=== PATIENT | male | born 1995 | race Caucasian/White ===

== ENCOUNTER 2025-06-09 20:37 | Emergency (ER) | payer BC, SELFPAY ==
--- OUTSIDE RECORDS SUMMARY | 2024-10-17 05:40 | XMS_ITS ---
Author Organization [facility] Address [address] [place] [address] Care Team Providers Care Application Designer Name Role Phone Melanie Trotter Primary Care Provider Lupe Hernandez Unavailable [phone] MELANIE TROTTER Unavailable Unavailable REASON FOR VISIT med refills Encounters Encounter Location Date Provider Diagnosis [facility] Office [address] [address] 10/17/2024 Melanie Trotter Plan Of Treatment No Information Progress Notes * Mundo GALVEZ HDOB:1994 (30 yo M)Acc No.[id number]:10/17/2024 Progress Notes Patient: Mundo Washington Provider: Joyce Trotter APRN :1995 A ge:29 Y S ex:Male Date:10/17/2024 Address:[address] [id number] Subjective: * Chief Complaints: * M ed refills Billing Information: * Procedure Codes: Care Plan Details* * Electronic signature of Tania Trotter APN on 06/09/2025 at 08:44 PM CDL COMPANY DRIVER Sign off status: Pending * Provider: Joyce Trotter APRN Date: 0 10/17/2024 Generated for Printi ng/Faxing/eTransmitting on: 1 08/10/2024 08:44 PM CDL COMPANY DRIVER
--- OUTSIDE RECORDS SUMMARY | 2025-06-08 07:20 | XMS_ITS ---
Author Organization [facility] Address [address] [place] [address] Care Team Providers Care Medicine Man Name Role Phone Melanie Trotter Primary Care Provider Lupe Hernandez Unavailable [phone] MELANIE TROTTER Unavailable Unavailable Allergies No Known Allergies Results Component Value Reference Range Notes Influenza A/B - 71188 Reviewed date:06/08/2025 02:52:05 PM Interpretation: Performing Lab: Notes/Report: A neg B neg COVID-19 RAPID - [id number] Reviewed date:06/08/2025 02:52:22 PM Interpretation: Performing Lab: Notes/Report: COVID19 neg REASON FOR VISIT Patient to clinic with complaint of recent cough, congestion and drainage. Medications Medication SIG (Take, Route, Frequency, Duration) Notes Start Date End Date Status Ibuprofen 800 MG Tablet 1 tablet with fo od or milk as needed Orally every 8 hrs 10/20/2024 Active traMADol HCl 50 MG Tablet 1 tablet as ne eded Orally Twice a day 03/09/2025 Active Lisinopril 10 mg Tablet TAKE ONE TABLET BY MOUTH ONCE DAILY; Duration: 30 Active Pantoprazole Sodium 40 mg Tablet Delayed Release TAKE 1 TABLET BY MOUTH TWICE DAILY; Duration: 30 Active Amoxicillin 500 MG Capsule 2 caps Orally Twice a day; Duration: 10 days 06/08/2025 06/18/2025 Active Immunizations Vaccine Route Administration Date Status Comme nts Flucelvax Trivalent, Syringe 0.5 mL, PF Unknown 025 Refused Social History Tobacco Use: Social History Observation Description Date Details (start date - stop date) Never Smoker NA - NA Social History Tobacco Use: Social Info Question Answer Notes Tobacco Control (Standard) Tobacco use: Nonsmoker Section Notes: 03/22/21 08-06-22 PHQ9 10/20/24 PHQ9 Vital Signs Temperature 97.5 degrees Fahrenheit 06/08/20 25 Blood pressure systolic 134 mm Hg 06/08/20 25 Blood pressure diastolic 70 mm Hg 025 Heart Rate 100 /min 06/08/2025 Respiratory Rate 18 /min 06/08/2025 Height 71 in 06/08/2025 Weight 303 lbs 06/08/2025 BMI 42.26 kg/m2 06/08/2025 Oximetry 98 % 06/08/2025 Height-cm 180.34 cm 06/08/2025 Weight-kg 137.44 kg 06/08/2025 Encounters Encounter Location Date Provider Diagnosis [facility] Office [address] [address] 06/08/2025 Lupe Hernandez Cough R05.9 ; Sinusi tis J32.9 ; Bronchitis J40 ; Encounter for immunization Z23 and Immunization not carried out because of patient refusal Z28.21 Assessments Encounter Date Diagnosis (ICD Code) Assessment Notes Treatment Notes Treatment Clinical Notes Section Notes 06/08/2025 Cough (ICD-10 - R05.9) covid swab neg flu swab neg 06/08/2025 Sinusitis (ICD-10 - J32.9) depomedrol/deca dron im rocephin 1 gram im amoxicillin 06/08/2025 Bronchitis (ICD-10 - J40) 06/08/2025 Encounter for immunization (ICD-10 - Z23) 06/08/2025 Immunization not carried out because of patient refusal (ICD-10 - Z28.21) 06/08/2025 Other Questions asked and answered; discharged to home. Plan Of Treatment Medication Medication Name Sig Start Date Stop Date Notes Amoxicillin 500 MG Capsule 2 caps Orally Twice a day; Duration: 10 days 06/08/2025 06/18/2025 Treatment Notes Assessment Notes Cough covid swab neg flu swab neg Sinusitis depomedrol/decadron im rocephin 1 gram im amoxicillin Other Questions asked and answered; discharged to home. Next Appt Details Follow Up: prn, Reason: Medications Administered Medication Instructions Date of Administration Dosage Notes dexAMETHasone 06/08/2025 4 mg [facility] [address]24[address]-7 423-00 pt tolerated well/instructed to wait 20 min DEPO-Medrol 06/08/2025 40 mg [facility] 66591-243 3-01 pt tolerated well/instructed to wait 20 min Rocephin 06/08/2025 1 g [facility] [address] -11 pt tolerated well/instructed to wait 20 min History and Physical Notes * HPI (History of Present Illness) Category Sub-Category Detail Notes Category Not es Provider Note patient is an alert 30 year old male known to practice and here for complaint of cough congestion denies fever has plans to travel for holidays flu swab neg covid swab neg discussed with patient results sinusitis bronchitis cough will administer depomedrol/decadron im as well as rocephin 1 gram im will e script amoxicillin Examination Category Sub-Category Detail Notes Category Not es General Examination GENERAL APPEARANCE: alert, w ell hydrated, in no distress, converses well HEAD: normocephalic, atrau matic EYES: PERRL; normal conjun ctiva EARS: bilateral tympanics slight reddened with fluid bulges THROAT: ERYTHEMATOUS THROAT, post nasal drainage NECK/THYROID: neck supple, full ra nge of motion, no JVD, without thyromegaly or masses HEART: Regular rate and rhy thm, S1 S2 normal LUNGS: Few scattered rales throughout posterior NEUROLOGIC: alert and oriented, cerebellar function normal, cognitive exam grossly normal, gait normal SKIN: warm and dry EXTREMITIES: no clubbing, cyanosi s, or edema. PSYCH: alert, oriented, cog nitive function intact, cooperative with exam, good eye contact, mood/affect full range, speech clear Progress Notes * Mundo GALVEZ HDOB:1994 (30 yo M)Acc No.[id number]:06/08/2025 Patient: Mundo Washington H Provider: Preet Hernandez APRN :1995 A ge:30 Y S ex:Male Date:06/08/2025 Address:[address] [place], [place] [id number] Pcp:Melanie Trotter Check In:01:02 PM CSTCheck O ut:01:23 PM LABORER PLUMBING Subjective: * Chief Complaints: * P atient to clinic with complaint of recent cough, congestion and drainage. * HPI: P lucianoder Note: patient is an alert 30 year old male known to practice and here for complaint of cough congestion denies fever has plans to travel for holidays flu swab neg covid swab neg discussed with patient results sinusitis bronchitis cough will administer depomedrol/decadron im as well as rocephin 1 gram im will e script amoxicillin. * ROS: G eneral - Multi System: Respiratory R eportscough . * Medical History: No Medical History Documented Medical History Verified * Surgical History: testicle surgery at age 13 Surgical History verified. * Hospitalization/Major Diagno stic Procedure: Denies Past Hospitalization. * Family History: F ather: unknown. M other: . F amily History Verified.. * Social History: T obacco Use: T obacco Control (Standard) T obacco use: N onsmoker S ocial History Verified. 1 08-06-22 PHQ9 10/20/24 PHQ9. * Medications: T akingtraMADol HCl 50 MG Tablet 1 tablet as needed Orally Twice a day Ibuprofen 800 MG Tablet 1 tablet with food or milk as needed Orally every 8 hrs Lisinopril 10 mg Tablet TAKE ONE TABLET BY MOUTH ONCE DAILY Pantoprazole Sodium 40 mg Tablet Delayed Release TAKE 1 TABLET BY MOUTH TWICE DAILY Taking traMADol HCl 50 MG Tablet 1 tablet as needed Orally Twice a day Taking Ibuprofen 800 MG Tablet 1 tablet with food or milk as needed Orally every 8 hrs Taking Lisinopril 10 mg Tablet TAKE ONE TABLET BY MOUTH ONCE DAILY Taking Pantoprazole Sodium 40 mg Tablet Delayed Release TAKE 1 TABLET BY MOUTH TWICE DAILY * Allergies: N .K.D.A.yesAllergies Verified. Objective: * Vitals: H t: 71 in, Wt:303lbs, Wt-k.44 kg, BMI:42.26Index, Temp:97.5F, BP:134/70mm Hg, HR:100/min, RR:18/min, Oxygen sat %:98%, O2 Source: RA, Pain scale: 1 1-10, Ht- cm: 180.34 cm. * Examination: G eneral Examination: GENERAL APPEARANCE: a lert, well hydrated, in no distress, converses well. HEAD: n ormocephalic, atraumatic. EYES: P ERRL; normal conjunctiva. EARS: b ilateral tympanics slight reddened with fluid bulges. THROAT: E RYTHEMATOUS THROAT, post nasal drainage. NECK/THYROID: n savanna supple, full range of motion, no JVD, without thyromegaly or masses. SKIN: w arm and dry. HEART: R egular rate and rhythm, S1 S2 normal. LUNGS: F ew scattered rales throughout posterior. EXTREMITIES: n o clubbing, cyanosis, or edema.. NEUROLOGIC: a lert and oriented, cerebellar function normal, cognitive exam grossly normal, gait normal. PSYCH: a lert, oriented, cognitive function intact, cooperative with exam, good eye contact, mood/affect full range, speech clear. Assessment: * Assessment: 1. C ough - R05.9 (Primary) 2 . S inusitis - J32.9 3 . B ronchitis - J40 4 . E ncounter for immunization - Z23 5 . I mmunization not carried out because of patient refusal - Z28.21 Plan: * Treatment: Value Reference Range A neg * B neg ?LAB: COVID-19 RAPID - [id number] (Collection Date & Time - 06/08/2025)* Value Reference Range C OVID19 neg Notes: covid swab neg flu swab neg??2.?Sinusitis? Start Amoxicillin Capsule, 500 MG, 2 caps, Orally, Twice a day, 10 days, 40 Capsule, Start Date: 06/08/2025, Stop Date: 06/18/2025, Refills 0.?? Notes: depomedrol/decadron im rocephin 1 gram im amoxicillin??3.?Others? Notes: Questions asked and answered; discharged to home.?? * Immunizations: Flucelvax Trivalent, Syringe 0.5 mL, PF (Not administered - Refused: Patient decision) (Encounter for immunization, Immunization not carried out because of patient refusal) * Therapeutic Injections: Dexamethasone Sodium Phosphate : 4 mg (Route: Combination inj. into one route) given by Kasey Duenas on left hip (Sinusitis) Depo-Medrol/Methylprednisolone per 40mg : 40 mg (Route: Combination inj. into one route) given by Kasey Duenas on left hip (Sinusitis) Rocephin/Ceftriaxone 1 Gram (per 250 mg) : 1 g (Route: Intramuscular) given by Kasey Duenas on left hip (Sinusitis) * Procedure Codes: 3 078F DIAST BP < 80 MM [id number] SYST BP GE 130 - 139MM [id number] INFLUENZA ASSAY W/OPTIC IH, Modifiers: QW 29236 CORONAVIRUS AG IA, Modifiers: QW J1100 Dexamethasone Sodium [id number] THER/PROPH/DIAG INJ, SC/CKD2445 Injection, methylprednisolone acetate, 1 mg, Units: 40.00 J0696 Rocephin/Ceftriaxone 1 Gram (per 250 mg) * Preventive Medicine: Screenings: D EPRESSION SCREENING: Date of most recent screenin 10/20/2024 The patient denies: a nxiety, depressed mood, difficulty sleeping, lack of energy, lack of interest in things that were enjoyable, poor appetite, sadness, thoughts of harming him/herself, thought of harming someone else, trouble concentrating, weight gain, weight loss, any depressive symptoms at this time Suicidal ideation: h as never been expressed/considered Homicidal ideation: h as never been expressed/considered * Follow Up: p rn Billing Information: * Visit Code: 86139 Office Visit, Est Pt., Level 3. * Procedure Codes: 3078F DIAST BP < 80 MM HG. 3075F SYST BP GE 130 - 139MM HG. 21912 INFLUENZA ASSAY W/OPTIC IH. Modifiers: QW 52515 CORONAVIRUS AG IA. Modifiers: QW J1100 Dexamethasone Sodium Phosphate. 84113 THER/PROPH/DIAG INJ, SC/IM. J1010 Injection, methylprednisolone acetate, 1 mg. Units: 40.00. J0696 Rocephin/Ceftriaxone 1 Gram (per 250 mg). * RER PLUMBING Sign off status: Completed true * Provider: Preet Hernandez VOLUNTEER SERVICES ASSISTANT Date: 08/09/2024 Generated for Ed Son/Jensmitting on: 08/10/2024 08:44 PM [employer]
[2025-06-09 20:44] VITALS: BP 136/82; PULSE 101; RESP 16; TEMP 36.6; O2SAT 100; BMI 43.5
--- OUTSIDE RECORDS SUMMARY | 2025-06-09 20:44 | XMS_ITS | Patient Health Record ---
Author Organization [facility] Address [address] [place] [address] Care Team Providers Care Steelworker Name Role Phone Jeffreykranthi Melanie Primary Care Provider Lupe Hernandez Unavailable [phone] MELANIE TROTTER Unavailable Unavailable Allergies No Known Allergies Results Component Value Reference Range Flag Notes Lipid Panel Reflex DLDL 8005 6, 61270 Reviewed date:03/14/2025 10:36:52 AM Interpretation: Performing Lab: Notes/Report: Diagnosis Description: Essential (primary) hypertension Trig 100 NA Children: Female Children: Male 5-9 yr 32-105 10-14 yr 37-131 Very high >=500 Adults: >20yrs 15-19 yr 39-132 Desirable <150 Borderline High 150-199 0-4 yr 34-112 0-4 yr 22-99 5-9 yr 30-101 High 200-499 Classification Guidelines:Triglycerides 10-14 yr 32-125 15-19 yr 37-148 Chol 171 <=200 MG/DL HDL 41 30-72 MG/DL Male: Reference Ranges:HDL 5-9y 36-73 10-14y 37-74 10-14y 37-70 15-19y 30-63 15-19y 35-74 5-9y 38-75 >=20y 40-59 >=20y 40-59 Female: CH/HDL 4.2 0.0-4.9 RATIO LDL 110 0-130 MG/DL LDL result is inaccurate , if Trig is >400 mg/dl. See DLDL result. Influenza A/B - 82454 Reviewed date:06/08/2025 02:52:05 PM Interpretation: Performing Lab: Notes/Report: A neg B neg COVID-19 RAPID - 85998 Reviewed date:06/08/2025 02:52:22 PM Interpretation: Performing Lab: Notes/Report: COVID19 neg Comprehensive Metabolic Pane l (CMP) 71053 Reviewed date:03/14/2025 10:37:04 AM Interpretation: Performing Lab: Notes/Report: Diagnosis Description: Essential (primary) hypertension Glucose Serum 89 71-110 MG/DL Testing p erformed at [facility], [address] [place] [address] [place] [address]. CLIA ID#: [id number] BUN 18 7-21 MG/DL Creat .78 .57-1.17 MG/DL V-esxrrb-y-benzoquinone imine (NAPQI) is a metabolite of acetaminophen, NAPQI concentrations of apparoximately 10 mg/L correlation to toxic levels of acetaminophen demonstrates a greater than or equil to 10% change in results. NAPQI concentrations greater than this may lead to falsely depressed results for patient samples. Use of this assay is not recommended for patients undergoing treatment with phenindione, due to the potential for falsely depressed results. GFR 121.4 NA Calculation pe rformed from GFR calculator provided by the [employer]. Glomerular Filtration rate(GRF) is the best overall index of kidney function. Normal GFR varies according to age,sex, body size, and declines with age. The National [employer] recommends using the CKD-EPI Creatinine Equation(2020) to estimate GFR. BUN/Creat Ratio 23.1 12.0-20.0 % HI Total Protein 7.2 5.8-8.0 G/DL Albumin 4.5 3.2-4.8 G/DL Globulin 2.7 2.3-3.5 G/DL Alb/Glob 1.7 0.8-2.2 Calcium 9.4 8.7-10.4 MG/DL Sodium 138 136-145 MMOL/L Potassium 4.7 3.5-5.1 MMOL/L Chloride 100 98-107 MMOL/L CO2 27.4 20.0-31.0 MMOL/L Anion Gap 15 5-15 Alk Phos 61 46-116 Bili Total .3 .3-1.2 MG/DL Use of this assay is not recommended for patients undergoing treatment with eltrombopag due to the potential for falsely elevated results. AST/SGOT 21 15-37 UNIT/L ALT/SGPT 32 12-78 UNIT/L Osmo Serum,Calculated 287 280-300 MOSM/KG CBC w\ Auto Diff 97257 Reviewed date:03/14/2025 10:36:58 AM Interpretation: Performing Lab: Notes/Report: Diagnosis Description: Essential (primary) hypertension WBC 9.4 4.5-11.0 X10'3 RBC 4.76 4.50-5.90 X10'6 Hgb 14.3 13.5-17.5 G/DL Hct 44.5 41.0-53.0 % MCV 93.5 80.0-100.0 FL MCH 30.0 27.0-31.0 PG MCHC 32.1 31.0-37.0 G/DL Platelet 475 150-400 X10'3 HI RDW-SD 45.6 35.0-49.0 FL RDW-CV 13.1 12.2-15.6 % MPV 8.9 9.2-12.0 FL LOW Neutro Auto% 61.7 40.0-70.0 % Lymph Auto% 25.0 22.0-44.0 % [place] Auto% 10.2 3.0-7.0 % HI Eos Auto% 2.2 2.0-4.0 % Baso Auto% 0.6 0.0-1.0 % Imm Gran% .3 .0-.4 % Neutro Abs 5.78 .80-7.70 Absolute Neutrophil Count 5780 NA Lymph Abs 2.35 .10-4.10 [place] Abs .96 .20-1.00 Eos Abs .21 .00-.40 Baso Abs .06 .00-.20 Imm Gran Abs .03 .00-.10 NRBC# .00 .00-.20 NRBC% .00 .00-.20 /100 int act WBC's Reason For Referral Reason Right knee pain Diagnosis 1 Lateral knee pain, r ight (M25.561) Referral Organization [facility] Referring Provider First Name Melanie Referring Provider Last Name Sergo Referring Provider Speciality Nurse Prac titioner Referred Provider Wayne Mireles Referred Provider Specialty Orthopedic S urgery General Notes Yvette Delvalle 03/09 09:21:45 AM CDT > faxed Referral Priority Routine Medications Medication SIG (Take, Route, Frequency, Duration) [...] Vaccine Route Administration Date Status Comme nts COVID-19 Vaccine (Moderna) Dose #1 Unknown 07/04/2020 A dministered COVID-19 Vaccine (Moderna) Dose #2 Unknown 08/01/2020 A dministered Flucelvax Trivalent, Syringe 0.5 mL, PF Unknown 06/08/2025 Refused Social History Tobacco Use: Social History Observation Description Date Details (start date - stop date) Never Smoker NA - NA Social History Depression Screening Social Info Question Answer Notes PHQ-9 Little interest or pleasure in doing thin gs Not at all Feeling down, depressed, or hopeless Not at all Trouble falling or staying asleep, or sleeping t oo much Not at all Feeling tired or having little energy Not at all Poor appetite or overeating Not at all Feeling bad about yourself, or that you are a failure, or have let yourself or your family down Not at all Trouble concentrating on thi ngs, such as reading the newspaper or watching television Not at all Moving or speaking so slowly that other people could have noticed. Or the opposite ? being so fidgety or restless that you have been moving around a lot more than usual Not at all Thoughts that you would be b joan off , or of hurting yourself in some way Not at all Total Score 0 Tobacco Use: Social Info Question Answer Notes Tobacco Control (Standard) Tobacco use: Nonsmoker Section Notes: 03/22/21 08-06-22 PHQ9 03/22/21 08-06-22 PHQ9 03/22/21 08-06-22 PHQ9 03/22/21 08-06-22 PHQ9 10/20/24 PHQ9 03/22/21 03/22/21 03/22/21 08-06-22 PHQ9 03/22/21 08-06-22 PHQ9 03/22/21 08-06-22 PHQ9 03/22/21 08-06-22 PHQ9 10/20/24 PHQ9 03/22/21 08-06-22 PHQ9 10/20/24 PHQ9 Problems Problem Type SNOMED Code ICD Code Onset Dates Problem Status W/U Status Risk Notes Problem Hypothyroidism (01830753) Hypothyroidism, unspecified type (E03.9) Active confirmed Problem Sinusitis (63920269) Sinusitis (J32.9) Active confirmed Problem Psoriasis (4049679) Psoriasis (L40.9) Active confirmed Problem Depression (036987440) Depression (F32.9) Active confirmed Problem Morbid obesity (969523655) Morbid obesity (E66.01) Active confirmed Problem Hypertension (57134930) Hypertension (I10) Active confirmed Problem Gastroesophageal reflux disease (387123409) GERD (gastroesophage al reflux disease) (K21.9) Active confirmed Problem Body mass index 40+ - severely obese (325576313) Body mass index [BMI] 40.0-44.9, adult (Z68.41) Active confirmed Vital Signs Heart Rate 100 /min 06/08/2025 Temperature 97.5 degrees Fahrenheit 06/08/2025 Respiratory Rate 18 /min 06/08/2025 Height-cm 180.34 cm 06/08/2025 Oximetry 98 % 06/08/2025 Blood pressure diastolic 70 mm Hg 06/08/2025 Weight-kg 137.44 kg 06/08/2025 Height 71 in 06/08/2025 Blood pressure systolic 134 mm Hg 06/08/2025 Weight 303 lbs 06/08/2025 BMI 42.26 kg/m2 06/08/2025 Encounters Encounter Location Date Provider Diagnosis [facility] Office [address] [address] 03/09/2025 Melanie Trotter Hypertension I10 ; GERD (gastroesophageal reflux disease) K21.9 and Lateral knee pain, right M25.561 [facility] [address] [address] 06/08/2025 Lupe Hernandez Cough R05.9 ; Sinusitis J32.9 ; Bronchitis J40 ; Encounter for immunization Z23 and Immunization not carried out because of patient refusal Z28.21 [facility] [address] [facility] [address] [place] [address] 10/20/2024 Melanie Trotter Hypertension I10 ; GERD (gastroesophageal reflux disease) K21.9 ; Shoulder pain, left M25.512 ; Sinusitis J32.9 and Depression screen Z13.31 Assessments Encounter Date Diagnosis (ICD Code) Assessment Notes Treatment Notes Treatment Clinical Notes Section Notes 10/20/2024 Hypertension (ICD-10 - I10) 10/20/2024 GERD (gastroesophageal reflux disease) (ICD-10 - K21.9) 03/09/2025 Hypertension (ICD-10 - I10) Stable, continue same, recheck in 6 months. Questions asked and answered; discharged to home. 03/09/2025 GERD (gastroesophageal reflux disease) (ICD-10 - K21.9) Stable. 06/08/2025 Sinusitis (ICD-10 - J32.9) depomedrol/decad radha im rocephin 1 gram im amoxicillin 06/08/2025 Cough (ICD-10 - R05.9) covid swab neg flu swab neg 06/08/2025 Bronchitis (ICD-10 - J40) 03/09/2025 Lateral knee pain, right (ICD-10 - M25.561) 10/20/2024 Shoulder pain, left (ICD-10 - M25.512) 10/20/2024 Sinusitis (ICD-10 - J32.9) Increase fluids, take medication as directed. RTC if no improvement with treatment. 06/08/2025 Encounter for immunization (ICD-10 - Z23) 06/08/2025 Immunization not carried out because of patient refusal (ICD-10 - Z28.21) 10/20/2024 Depression screen (ICD-10 - Z13.31) 03/09/2025 Other Venipuncture performed. Right arm. One attempt. Pt tolerated well, bleeding [facility] 06/08/2025 Other Questions asked and answered; discharged to home. Plan Of Treatment No Information Insurance Providers Payer Name Payer Address Payer Phone Subscriber Number Group Number Insured Name Patient Relationship to Insured Coverage Start Date Coverage End Date [place] [address] [place] [phone] [id number] Mundo Galvez Self - patient is the insured 5 Medications Administered Medication Instructions Date of Administration Dosage Notes DEPO-Medrol 06/08/2025 [place] [address]-067 3- pt tolerated well/instructed to wait 20 min DEPO-Medrol 08/04/2023 40 mg [id number] 3-01 Patient tolerated well. dexAMETHasone 04/21/2023 8 mg [id number] 423-00 Patient tolerated well. dexAMETHasone 08/04/2023 4 mg [id number] 423-00 Patient tolerated well. dexAMETHasone 06/08/2025 4 mg ndc 36470-5 423-00 pt tolerated well/instructed to wait 20 min Ketorolac Tromethamine 12/24/2022 60 mg nd [id number] Patient tolerated well. Rocephin 04/21/2023 1 g [id number] -11 Patient tolerated well. Rocephin 08/04/2023 1 g -[id number] -21 Patient tolerated well. Rocephin 06/08/2025 1 g ndc [address] -11 pt tolerated well/instructed to wait 20 min Medical (General) History Surgical History Surgery Date(Month/Year) testicle surgery at age 13
--- OUTSIDE RECORDS SUMMARY | 2025-06-09 20:45 | XMS_ITS | Encounter Summary ---
Author Organization 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
--- OUTSIDE RECORDS SUMMARY | 2025-06-09 20:45 | XMS_ITS | Clinical Summary ---
[facility] Organization [facility] Address [address] Attn: Epic Prelude ADT SYDNEE AMOS [id number] Care Team Providers Care Pharm Spec Name Role Phone Unavailable Primary Care Provider Unavailabl e Social History Tobacco Use Types Packs/Day Years Used Date Smoking Tobacco: Never Assessed Sex and Gender Information Value Date Recorded Sex Assigned at Not on file Legal Sex Male 4:17 AM [employer] [facility] [employer] Gender Identity Not on file Sexual Orientation Not on file Plan of Treatment Health Maintenance Due Date Last Done Comments DTAP/TDAP/TD VACCINES (1 - Tdap) 2012 HEPATITIS B VACCINES (1 of 3 - 19+ 3-dose series) 04/22 INFLUENZA VACCINE (#1) 2025 HPV VACCINES (No Doses Required) Completed
== END 2025-06-09 21:03 | disposition left against medical advice (07) ==
PROVIDERS: Emergency Provider Physician Assistant; PCP Nurse Practitioner
DX: Z53.21 Procedure and treatment not carried out due to patient leaving prior to being seen by health care provider (principal)